=== PATIENT | female | born 1995 | race Hispanic/Latino ===

== ENCOUNTER 2025-08-07 01:43 | Inpatient (IN) | payer MEDICAID, SELFPAY ==
[2025-08-07] MEDS ORDERED: Calcium Gluc 4.6 MEQ/10 ML (100 MG/ML) SLOW IVP PRN (01:58)
[2025-08-07] MEDS ORDERED: Acetaminophen 500 MG TAB PO PRN (01:58)
[2025-08-07] MEDS ORDERED: Methylergonovine 0.2 MG/ML VIAL IM PRN (01:58)
[2025-08-07] MEDS ORDERED: Carboprost 250 MCG/ML AMP IM PRN (01:58)
[2025-08-07] MEDS ORDERED: Ondansetron PF 4 MG/2 ML Vial IVP PRN ×3 (01:58→08:17)
[2025-08-07] MEDS ORDERED: Diphenoxylate HCl/Atropine Tablet PO PRN ×2 (01:58)
[2025-08-07] MEDS ORDERED: Tranexamic Acid 1,000 MG/10 ML VIAL IVP PRN (01:58)
[2025-08-07] MEDS: Magnesium Sulfate 20 gm/500 ml 20 GM/500 ML BAG ONE ×2 (02:00→12:52)
[2025-08-07 02:20] VITALS: BMI 30.3
[2025-08-07 02:36] LABS: Cocaine Metabolite Screen Negative (Negative); THC/Cannabinoid Screen Negative (Negative); Tricyclic Screen Negative (Negative)
[2025-08-07 02:44] LABS: Hematocrit 37.2 % (34.9-44.5); Hemoglobin 11.4 g/dL (12.0-15.5); Mean Corpuscular Hemoglobin 20.4 pg (27.0-33.0); Mean Corpuscular Volume 66.4 fL (81.6-98.3); Platelet Count 249 10x3/uL (150-450); Red Blood Cell (RBC) Count 5.60 10x6/uL (3.90-5.03); White Blood Cell (WBC) Count 9.87 10x3/uL (3.5-10.5)
[2025-08-07 03:20] LABS: Syphilis Antibody Index 0.08 S/CO (<1.00 Non-Reactive)
[2025-08-07 03:27] LABS: Protein, Urine Random Quant 416.0 mg/dL (1-14)
[2025-08-07 03:30] LABS: Hep B Surf Ag - L&D Non-Reactive S/CO (NonReactive)
[2025-08-07 04:06] LABS: HIV (1/2) Antibody/Antigen Non-Reactive (NonReactive); HIV 1/2 INDEX 0.11 S/CO (<1.00)
[2025-08-07] MEDS: NIFEdipine XL 30 MG ER.TAB PO SCH (04:06)
[2025-08-07] MEDS: hydrALAZINE 20 MG/ML VIAL SLOW IVP PRN ×2 (05:34→06:16)
[2025-08-07] MEDS ORDERED: Famotidine/PF 20 mg/2ml Vial SLOW IVP PRN (06:48)
[2025-08-07] MEDS ORDERED: Bicitra 30 ML UDCUP PO PRN (06:48)
[2025-08-07] MEDS ORDERED: Simethicone Chewable 80 MG TAB PO PRN (07:34)
[2025-08-07] MEDS ORDERED: Bisacodyl 10 MG SUPP PR PRN (07:34)
[2025-08-07] MEDS ORDERED: Acetaminophen 325 MG TAB PO PRN (07:34)
[2025-08-07] MEDS ORDERED: hydrALAZINE 20 MG/ML VIAL SLOW IVP PRN (07:34)
[2025-08-07] MEDS ORDERED: Lanolin Ointment 7 GM TUBE TOP PRN (07:34)
[2025-08-07] MEDS: Oxytocin 30 units/NS 500 ML 500 ML IV SCH (08:06)
[2025-08-07] MEDS ORDERED: HYDROmorphone 0.5 MG/0.5 ML SYRINGE SLOW IVP PRN (08:17)
[2025-08-07] MEDS ORDERED: Meperidine HCl/PF 25 MG (1 mL) VIAL SLOW IVP PRN (08:17)
[2025-08-07] MEDS ORDERED: diphenhydrAMINE 50 MG/ML VIAL IVP PRN (08:17)
[2025-08-07] MEDS ORDERED: Communication Order-Pharmacy FS SCH (08:30)
[2025-08-07] MEDS ORDERED: Ketorolac Tromethamine 30 MG (1 mL) VIAL IVP SCH (08:30)
[2025-08-07 09:38] LABS: Analyzer IN Cardio CS NICU; pH (Cord, venous) 6.962 (7.250-7.350)
[2025-08-07] MEDS: Ferrous Sulfate 325 MG TAB PO SCH (15:25)
[2025-08-07] MEDS ORDERED: NIFEdipine XL 30 MG ER.TAB PO SCH (21:00)
[2025-08-08] MEDS: Ketorolac Tromethamine 30 MG (1 mL) VIAL IVP PRN (04:05)
[2025-08-08] MEDS: NIFEdipine XL 30 MG ER.TAB PO SCH (05:52)
[2025-08-08 06:09] LABS: Platelet Count 263 10x3/uL (150-450)
[2025-08-08 06:10] LABS: Hematocrit 30.6 % (34.9-44.5); Hemoglobin 9.2 g/dL (12.0-15.5); Mean Corpuscular Hemoglobin 20.3 pg (27.0-33.0); Mean Corpuscular Volume 67.5 fL (81.6-98.3); Red Blood Cell (RBC) Count 4.53 10x6/uL (3.90-5.03); White Blood Cell (WBC) Count 12.10 10x3/uL (3.5-10.5)
[2025-08-08] MEDS: Furosemide 20 MG (2 mL) VIAL SLOW IVP SCH (09:54)
[2025-08-08] MEDS ORDERED: Furosemide 40 MG (4 mL) VIAL SLOW IVP SCH (10:00)
[2025-08-08] MEDS ORDERED: Acetaminophen 500 MG TAB PO PRN (10:07)
[2025-08-08 10:27] LABS: ALT (SGPT) 13 U/L (Less than 34); AST (SGOT) 23 U/L (11-34); Albumin 2.0 g/dL (3.1-4.5); Alkaline Phosphatase 138 U/L (40-110); Anion Gap 15 mmol/L (10-20); BUN (Urea Nitrogen) 19 mg/dL (7.0-18.7); Bilirubin, Total 0.3 mg/dL (0.3-1.2); Calc. Creatinine Clearance 115 mL/min (70-130); Carbon Dioxide 20 mmol/L (22-29); Chloride 101 mmol/L (98-107); Globulin 3.5 g/dL (2.4-3.5); Glucose 125 mg/dL (70-105); Potassium 4.5 mmol/L (3.5-5.1); Sodium 131 mmol/L (136-145)
[2025-08-08 10:34] LABS: Calcium 6.4 mg/dL (7.8-10.44)
[2025-08-08] MEDS ORDERED: Calcium Gluc 4.6 MEQ/10 ML (100 MG/ML) SLOW IVP SCH (11:00)
[2025-08-08] MEDS: Ibuprofen 800 MG TAB PO SCH (14:06)
[2025-08-08] MEDS: Magnesium Sulfate 20 gm/500 ml 20 GM/500 ML BAG ONE (19:23)
[2025-08-08] MEDS: HYDROcodone/Acetaminophen 5/325 mg Tablet PO PRN (20:39)
[2025-08-09] MEDS: hydrALAZINE 20 MG/ML VIAL SLOW IVP PRN (04:05)
[2025-08-09 06:27] LABS: Hematocrit 30.5 % (34.9-44.5); Hemoglobin 9.4 g/dL (12.0-15.5); Mean Corpuscular Hemoglobin 20.6 pg (27.0-33.0); Mean Corpuscular Volume 66.9 fL (81.6-98.3); Platelet Count 261 10x3/uL (150-450); Red Blood Cell (RBC) Count 4.56 10x6/uL (3.90-5.03); White Blood Cell (WBC) Count 14.64 10x3/uL (3.5-10.5)
[2025-08-09 06:43] LABS: ALT (SGPT) 10 U/L (Less than 34); AST (SGOT) 19 U/L (11-34); Albumin 1.8 g/dL (3.1-4.5); Alkaline Phosphatase 112 U/L (40-110); Anion Gap 14 mmol/L (10-20); BUN (Urea Nitrogen) 20 mg/dL (7.0-18.7); Bilirubin, Total 0.2 mg/dL (0.3-1.2); Calc. Creatinine Clearance 148 mL/min (70-130); Carbon Dioxide 22 mmol/L (22-29); Chloride 106 mmol/L (98-107); Globulin 3.0 g/dL (2.4-3.5); Glucose 91 mg/dL (70-105); Potassium 4.0 mmol/L (3.5-5.1); Sodium 138 mmol/L (136-145)
[2025-08-09 07:02] LABS: Calcium 6.7 mg/dL (7.8-10.44)
[2025-08-09 07:06] LABS: Anisocytosis SLIGHT = 6-15 cells (100X) (0-5/hpf); Microcytosis SLIGHT = 6-15 cells (100X) (0-5/hpf); Ovalocytes SLIGHT = 2-5 cells (100X) (0-1/hpf); Poikilocytosis SLIGHT = 6-15 cells (100X) (0-5/hpf)
[2025-08-09 07:07] LABS: #Basophils Less than 0.03 10x3/uL (0.0-0.2); #Eosinophils Less than 0.03 10x3/uL (0.0-0.5); #Monocytes 0.83 10x3/uL (0.0-1.1); #Neutrophils 11.31 10x3/uL (1.5-8.4); %Basophils 0.1 % (0.0-2.0); %Eosinophils 0.0 % (0.0-6.0); %Lymphocytes 15.0 % (18.0-47.0); %Monocytes 5.7 % (0.0-10.0); %Neutrophils 77.3 % (40.0-75.0); Platelet Adequacy Comment Appears Adequate
[2025-08-09] MEDS: Heparin 1 UNITS/ML SYRINGE (NICU) ONE (07:46)
[2025-08-09] MEDS: Ondansetron PF 4 MG/2 ML Vial ONE (07:46)
[2025-08-09] MEDS: CEFAZOLIN 2 GM VIAL ONE (07:46)
[2025-08-09] MEDS: Poractant Alfa 120 MG/1.5 ML SUV ONE (07:46)
[2025-08-09] MEDS: Dexamethasone 10 MG/ML VIAL ONE (07:47)
[2025-08-09] MEDS: Famotidine/PF 20 mg/2ml Vial ONE (07:47)
[2025-08-09] MEDS: Boostrix 0.5 ML (Tdap) VIAL (>/=7 yrs of age) IM ONE (07:47)
[2025-08-09] MEDS: Oxytocin 10 UNITS/ML VIAL ONE (07:47)
[2025-08-09] MEDS: HYDROcodone/Acetaminophen 5/325 mg Tablet PO PRN (08:24)
[2025-08-09] MEDS ORDERED: Measles/Mumps/Rubella 10 MCG/0.5 ML VIAL SC ONE (09:00)
[2025-08-10] MEDS ORDERED: NIFEdipine 10 MG CAP PO SCH (00:30)
[2025-08-10] MEDS: NIFEdipine 10 MG CAP PO SCH (00:35)
[2025-08-10] MEDS: NIFEdipine XL 60 MG ER.TAB PO SCH (09:18)
[2025-08-10] MEDS ORDERED: NIFEdipine XL 60 MG ER.TAB PO SCH (19:48)
[2025-08-10] MEDS: hydrALAZINE 20 MG/ML VIAL SLOW IVP SCH (19:55)
[2025-08-10] MEDS: hydrALAZINE 20 MG/ML VIAL ONE (20:02)
[2025-08-10] MEDS: NIFEdipine XL 30 MG ER.TAB PO SCH (21:25)
[2025-08-11] MEDS ORDERED: Calcium Gluc 4.6 MEQ/10 ML (100 MG/ML) SLOW IVP PRN (01:53)
[2025-08-11] MEDS: NIFEdipine XL 90 MG ER.TAB PO SCH (08:27)
[2025-08-12] MEDS: hydrALAZINE 20 MG/ML VIAL SLOW IVP PRN (01:04)
[2025-08-12] MEDS ORDERED: hydrALAZINE 20 MG/ML VIAL SLOW IVP PRN (05:33)
[2025-08-12] MEDS: Furosemide 20 MG (2 mL) VIAL SLOW IVP SCH (06:36)
[2025-08-12 06:56] LABS: Anion Gap 17 mmol/L (10-20); BUN (Urea Nitrogen) 14 mg/dL (7.0-18.7); Calc. Creatinine Clearance 163 mL/min (70-130); Calcium 8.2 mg/dL (7.8-10.44); Carbon Dioxide 21 mmol/L (22-29); Chloride 107 mmol/L (98-107); Glucose 84 mg/dL (70-105); Potassium 4.7 mmol/L (3.5-5.1); Sodium 140 mmol/L (136-145)
[2025-08-12 07:03] LABS: Troponin I 0.016 ng/mL (< 0.028)
[2025-08-12 07:08] LABS: Hematocrit 33.9 % (34.9-44.5); Hemoglobin 10.1 g/dL (12.0-15.5); Mean Corpuscular Hemoglobin 20.6 pg (27.0-33.0); Mean Corpuscular Volume 69.2 fL (81.6-98.3); Platelet Count 381 10x3/uL (150-450); Red Blood Cell (RBC) Count 4.90 10x6/uL (3.90-5.03); White Blood Cell (WBC) Count 6.50 10x3/uL (3.5-10.5)
[2025-08-12 07:31] LABS: Anisocytosis SLIGHT = 6-15 cells (100X) (0-5/hpf); Microcytosis SLIGHT = 6-15 cells (100X) (0-5/hpf); Ovalocytes SLIGHT = 2-5 cells (100X) (0-1/hpf); Platelet Adequacy Comment Appears Adequate; Poikilocytosis SLIGHT = 6-15 cells (100X) (0-5/hpf)
[2025-08-12 07:32] LABS: #Basophils 0.03 10x3/uL (0.0-0.2); #Eosinophils 0.12 10x3/uL (0.0-0.5); #Monocytes 0.50 10x3/uL (0.0-1.1); #Neutrophils 3.28 10x3/uL (1.5-8.4); %Basophils 0.5 % (0.0-2.0); %Eosinophils 1.8 % (0.0-6.0); %Lymphocytes 38.8 % (18.0-47.0); %Monocytes 7.7 % (0.0-10.0); %Neutrophils 50.4 % (40.0-75.0)
[2025-08-12] MEDS ORDERED: Losartan 25 MG TAB PO SCH (09:00)
[2025-08-12] MEDS: Losartan 25 MG TAB PO SCH (09:00)
[2025-08-12 10:30] LABS: Troponin I Less than 0.010 ng/mL (< 0.028)
[2025-08-12 15:18] LABS: Troponin I Less than 0.010 ng/mL (< 0.028)
[2025-08-13 04:14] LABS: Anion Gap 14 mmol/L (10-20); BUN (Urea Nitrogen) 17 mg/dL (7.0-18.7); Calc. Creatinine Clearance 166 mL/min (70-130); Calcium 8.3 mg/dL (7.8-10.44); Carbon Dioxide 22 mmol/L (22-29); Chloride 106 mmol/L (98-107); Glucose 110 mg/dL (70-105); Magnesium 1.8 mg/dL (1.6-2.6); Potassium 4.2 mmol/L (3.5-5.1); Sodium 138 mmol/L (136-145)
[2025-08-13] MEDS: Furosemide 20 MG (2 mL) VIAL SLOW IVP SCH (08:11)
[2025-08-14 04:16] LABS: Anion Gap 14 mmol/L (10-20); BUN (Urea Nitrogen) 17 mg/dL (7.0-18.7); Calc. Creatinine Clearance 166 mL/min (70-130); Calcium 8.4 mg/dL (7.8-10.44); Carbon Dioxide 23 mmol/L (22-29); Chloride 106 mmol/L (98-107); Glucose 95 mg/dL (70-105); Potassium 4.2 mmol/L (3.5-5.1); Sodium 139 mmol/L (136-145)
[2025-08-14] MEDS: hydrALAZINE 20 MG/ML VIAL SLOW IVP PRN (05:39)
[2025-08-14] MEDS ORDERED: NIFEdipine XL 90 MG ER.TAB PO SCH ×4 (09:00→21:00)
[2025-08-14] MEDS ORDERED: Ibuprofen 200 MG TAB PO PRN (09:31)
[2025-08-14 11:08] VITALS: BP 132/83; TEMP 98.6
[2025-08-14] MEDS: Measles/Mumps/Rubella 10 MCG/0.5 ML VIAL SC ONE (12:01)
== END 2025-08-14 15:45 | disposition home or self-care (01) | DRG 788 ==
LOC: CSHLD/OP 01:43 → CSHLD 03:18 → CSHANTE 08-08 08:46
PROVIDERS: ADMIT Obstetrics & Gynecology; ATTEND Obstetrics & Gynecology
PROC: 10D00Z1 Extraction of Products of Conception, Low, Open Approach (ICD-10-PCS; principal; 2025-08-07)
PROC: 3E03329 Introduction of Other Anti-infective into Peripheral Vein, Percutaneous Approach (ICD-10-PCS; 2025-08-07)
PROC: 3E0234Z Introduction of Serum, Toxoid and Vaccine into Muscle, Percutaneous Approach (ICD-10-PCS; 2025-08-09)
DX: O11.4 Pre-existing hypertension with pre-eclampsia, complicating childbirth (principal); Z3A.24 24 weeks gestation of pregnancy; Z37.0 Single live birth; O32.1XX0 Maternal care for breech presentation, not applicable or unspecified; O99.02 Anemia complicating childbirth; O99.284 Endocrine, nutritional and metabolic diseases complicating childbirth; O76 Abnormality in fetal heart rate and rhythm complicating labor and delivery; D50.8 Other iron deficiency anemias; E03.9 Hypothyroidism, unspecified; Z23 Encounter for immunization; E88.09 Other disorders of plasma-protein metabolism, not elsewhere classified; O99.53 Diseases of the respiratory system complicating the puerperium; R09.89 Other specified symptoms and signs involving the circulatory and respiratory systems; O10.92 Unspecified pre-existing hypertension complicating childbirth
CPT/HCPCS: 36415; 51702; 76770; 80048; 80053; 80306; 82570; 82805; 83735; 84100; 84156; 84443; 84484; 85025; 85027; 86762; 86780; 86850; 86900; 86901; 87340; 87389; 88307; 90707; 93005; 93010; 93306; 99285; J0360; J0702; J1100; J1885; J1940; J2250; J2274; J2590; J3475

== ENCOUNTER 2025-09-04 10:48 | Inpatient (IN) | payer MEDICAID ==
[2025-09-04 11:38] LABS: #Basophils Less than 0.03 10x3/uL (0.0-0.2); #Eosinophils 0.21 10x3/uL (0.0-0.5); #Monocytes 0.35 10x3/uL (0.0-1.1); #Neutrophils 2.39 10x3/uL (1.5-8.4); %Basophils 0.4 % (0.0-2.0); %Eosinophils 4.1 % (0.0-6.0); %Lymphocytes 41.3 % (18.0-47.0); %Monocytes 6.9 % (0.0-10.0); %Neutrophils 47.1 % (40.0-75.0); Hematocrit 35.6 % (34.9-44.5); Hemoglobin 11.1 g/dL (12.0-15.5); Mean Corpuscular Hemoglobin 22.3 pg (27.0-33.0); Mean Corpuscular Volume 71.5 fL (81.6-98.3); Platelet Count 418 10x3/uL (150-450); Red Blood Cell (RBC) Count 4.98 10x6/uL (3.90-5.03); White Blood Cell (WBC) Count 5.08 10x3/uL (3.5-10.5)
[2025-09-04 11:59] LABS: ALT (SGPT) 16 U/L (Less than 34); AST (SGOT) 18 U/L (11-34); Albumin 4.1 g/dL (3.1-4.5); Alkaline Phosphatase 72 U/L (40-110); Anion Gap 14 mmol/L (10-20); BUN (Urea Nitrogen) 11 mg/dL (7.0-18.7); Bilirubin, Total 0.6 mg/dL (0.3-1.2); Calc. Creatinine Clearance 0 mL/min (70-130); Calcium 9.6 mg/dL (7.8-10.44); Carbon Dioxide 26 mmol/L (22-29); Chloride 104 mmol/L (98-107); Globulin 3.1 g/dL (2.4-3.5); Glucose 93 mg/dL (70-105); Potassium 3.8 mmol/L (3.5-5.1); Sodium 140 mmol/L (136-145)
[2025-09-04] MEDS ORDERED: Droperidol 5 MG/2 ML VIAL ONE (11:59)
[2025-09-04 12:00] LABS: Troponin I Less than 0.010 ng/mL (< 0.028)
[2025-09-04] MEDS ORDERED: Magnesium 2 GM/50 ML BAG (IN WATER) ONE (14:08)
[2025-09-04] MEDS ORDERED: Calcium Gluc 4.6 MEQ/10 ML (100 MG/ML) SLOW IVP PRN (15:27)
[2025-09-04] MEDS ORDERED: Ondansetron PF 4 MG/2 ML Vial IVP PRN (15:29)
[2025-09-04] MEDS ORDERED: hydrALAZINE 20 MG/ML VIAL SLOW IVP PRN ×2 (15:34)
[2025-09-04 15:56] VITALS: BMI 32.0
[2025-09-04] MEDS: Magnesium Sulfate 20 gm/500 ml 20 GM/500 ML BAG IVPB SCH (15:57)
[2025-09-04] MEDS: Gabapentin 300 MG CAP PO SCH (17:39)
[2025-09-04] MEDS ORDERED: Gabapentin 300 MG CAP PO PRN (21:00)
[2025-09-04] MEDS: Acetaminophen 500 MG TAB PO PRN (21:09)
[2025-09-04 22:38] LABS: Magnesium 6.3 mg/dL (1.6-2.6)
[2025-09-05 04:14] LABS: Hematocrit 31.9 % (34.9-44.5); Hemoglobin 10.3 g/dL (12.0-15.5); Mean Corpuscular Hemoglobin 22.7 pg (27.0-33.0); Mean Corpuscular Volume 70.4 fL (81.6-98.3); Platelet Count 407 10x3/uL (150-450); Red Blood Cell (RBC) Count 4.53 10x6/uL (3.90-5.03); White Blood Cell (WBC) Count 6.80 10x3/uL (3.5-10.5)
[2025-09-05 04:31] LABS: ALT (SGPT) 12 U/L (Less than 34); AST (SGOT) 17 U/L (11-34); Albumin 3.7 g/dL (3.1-4.5); Alkaline Phosphatase 65 U/L (40-110); Anion Gap 15 mmol/L (10-20); BUN (Urea Nitrogen) 8 mg/dL (7.0-18.7); Bilirubin, Total 0.6 mg/dL (0.3-1.2); Calc. Creatinine Clearance 181 mL/min (70-130); Calcium 7.9 mg/dL (7.8-10.44); Carbon Dioxide 25 mmol/L (22-29); Chloride 101 mmol/L (98-107); Globulin 2.9 g/dL (2.4-3.5); Glucose 112 mg/dL (70-105); Magnesium 7.2 mg/dL (1.6-2.6); Potassium 3.8 mmol/L (3.5-5.1); Sodium 137 mmol/L (136-145)
[2025-09-05 04:36] LABS: Anisocytosis SLIGHT = 6-15 cells (100X) (0-5/hpf); Microcytosis SLIGHT = 6-15 cells (100X) (0-5/hpf); Ovalocytes SLIGHT = 2-5 cells (100X) (0-1/hpf); Platelet Adequacy Comment Appears Increased; Poikilocytosis SLIGHT = 6-15 cells (100X) (0-5/hpf); Spherocytes SLIGHT = 1-5 cells (100X) (None Seen)
[2025-09-05 04:37] LABS: #Basophils Less than 0.03 10x3/uL (0.0-0.2); #Eosinophils 0.16 10x3/uL (0.0-0.5); #Monocytes 0.52 10x3/uL (0.0-1.1); #Neutrophils 3.78 10x3/uL (1.5-8.4); %Basophils 0.3 % (0.0-2.0); %Eosinophils 2.4 % (0.0-6.0); %Lymphocytes 33.8 % (18.0-47.0); %Monocytes 7.6 % (0.0-10.0); %Neutrophils 55.6 % (40.0-75.0)
[2025-09-05] MEDS: NIFEdipine XL 90 MG ER.TAB PO SCH ×2 (09:06→16:48)
[2025-09-05] MEDS: Magnesium Sulfate 20 gm/500 ml 20 GM/500 ML BAG ONE (17:19)
[2025-09-06 09:49] VITALS: BP 129/81; TEMP 98.7
== END 2025-09-06 14:15 | disposition home or self-care (01) | DRG 776 ==
LOC: CSHERS 10:48 → CSHLD 15:26 → CSHPP 09-05 16:20
PROVIDERS: ADMIT Obstetrics & Gynecology; ATTEND Obstetrics & Gynecology
DX: O14.15 Severe pre-eclampsia, complicating the puerperium (principal); Z79.899 Other long term (current) drug therapy
CPT/HCPCS: 36415; 51702; 74177; 80053; 83735; 83880; 84484; 85025; 93005; 99285; J1790; J3475